=== PATIENT | female | born 1995 | race Asian ===

== ENCOUNTER → 2019-04-01 | Outpatient (CLI) | payer OTHER ==
--- NOTE | 2019-04-01 19:36 | Diagnostic Imaging Report ---
EXAMINATION: CHEST 2 VIEWS INDICATION: Pain. ^[id number] ^[id number] COMPARISON: None FINDINGS: TUBES and LINES: None. LUNGS: Lungs are well inflated. There are bibasilar atelectasis. There is no evidence of pneumonia or pulmonary edema. PLEURA: No pleural effusion or pneumothorax. HEART AND MEDIASTINUM: The cardiomediastinal silhouette is unremarkable. BONES AND SOFT TISSUES: No acute osseous lesion. Soft tissues are unremarkable. UPPER ABDOMEN: No free air under the diaphragm. IMPRESSION: No acute thoracic abnormality. Signed by: Dr. Consuelo Brooks M.D. on 04/01/2019 7:33 PM
--- NOTE | 2019-04-01 21:50 | Diagnostic Imaging Report ---
AP and Lateral views of the thoracic and lumbar spine - 3 views thoracic, 5 views lumbar obliques Sacrum - 2 views HISTORY: Back pain COMPARISON: None. FINDINGS: Some of the osseous structures are partially obscured by stool and overlying bowel gas. Minimal shaped curvature. 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 Thoracic spine: No evidence of a compression deformity or displaced fracture. The disc spaces are well-maintained. Lumbar spine: There are 5 non-rib bearing lumbar-type vertebral bodies. No evidence of a compression deformity or displaced fracture. Minimal degenerative changes at T12-L1. The facet joints are unremarkable. Other: Mild degenerative changes of the right sacroiliac joint. IMPRESSION: 1. No acute radiographic abnormality. 2. Minimal to mild degenerative changes. Signed by: Dr. Jovan Buchanan D.O., M.M.M. on 04/01/2019 9:46 PM
== END ==
LOC: RAD 17:09
PROVIDERS: ATTEND Internal Medicine
DX: Z11.1 Encounter for screening for respiratory tuberculosis (principal); M54.6 Pain in thoracic spine; M54.5 Low back pain
CPT/HCPCS: 71046; 72072; 72110; 72220; 81025

== ENCOUNTER → 2019-09-28 | Outpatient (CLI) | payer OTHER ==
--- NOTE | 2019-09-28 15:39 | Diagnostic Imaging Report ---
EXAMINATION: Head CT HISTORY: Chronic posttraumatic headaches, head trauma a year ago COMPARISON: None. TECHNIQUE: Multidetector axial images were obtained with, without contrast from the foramen magnum to the vertex . The images were reconstructed using brain and bone algorithms. Thin section brain images were reformatted into coronal and sagittal planes. Image quality: Motion/streaking artifact limits the evaluation of the skull base and posterior cranial fossa. Dose modulation, iterative reconstruction, and/or weight based adjustment of the mA/kV was utilized to reduce the radiation dose to as low as reasonably achievable. FINDINGS: Parenchyma: 1. No abnormal densities. 2. No mass or hemorrhage. No CT evidence of acute territorial vascular insult. Extra-axial spaces:No abnormal density. No extra-axial fluid collections Brain volume: Normal for age. Ventricles: No hydrocephalus or displacement. Arteries: No density suggestive of thrombus. Dural sinuses: No abnormal density. Foramen magnum: No mass, Chiari malformation, or basilar invagination. Sella: No obvious mass. Paranasal/mastoid sinuses: Imaged portions unremarkable. Skull/Scalp: No lytic or blastic lesions. No fractures. IMPRESSION: Normal head CT. Signed by: Dr. Belinda Ponce M.D. on 09/28/2019 3:36 PM
== END ==
LOC: CT 14:15
PROVIDERS: ATTEND Internal Medicine
DX: G44.329 Chronic post-traumatic headache, not intractable (principal)
CPT/HCPCS: 70450